=== PATIENT | male | born 2000 | race Caucasian/White ===

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

== ENCOUNTER 2021-03-17 16:22 | Emergency (ER) | payer MEDICAID ==
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
[2021-03-17] MEDS ORDERED: Bacitracin Oint 1 GM U/D Packet TOP ONE (16:53)
[2021-03-17] MEDS ORDERED: Diphtheria,Pertussis(Acell),Tetanus Vaccine 0.5 ML Syringe IM ONE (16:53)
== END 2021-03-17 17:37 | disposition home or self-care (01) ==
LOC: MW.ED 16:22
DX: S91.131A Puncture wound without foreign body of right great toe without damage to nail, initial encounter (principal); Z23 Encounter for immunization; W45.0XXA Nail entering through skin, initial encounter
CPT/HCPCS: 90471; 90715; 99283

== ENCOUNTER 2021-03-25 21:59 | Emergency (ER) | payer MEDICAID ==
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
--- NOTE | 2021-03-25 23:09 | CR ---
Indication: Cough and shortness of breath Technique: Chest 1 view Comparison: None Findings/Impression: Cardiovascular and mediastinum: Heart size and vasculature are normal in caliber and appearance. Lungs and pleural space: Lungs are clear. No sign of infiltrate or mass. No sign of pleural effusion. No pneumothorax. Bones and soft tissues: No acute findings. Dictated by Slick Kern MD @ 03/25/2021 11:08:01 PM (Electronically Signed)
== END 2021-03-25 23:19 | disposition home or self-care (01) ==
LOC: MW.ED 21:59
DX: J40 Bronchitis, not specified as acute or chronic (principal)
CPT/HCPCS: 71045; 71045-26; 99283-25

== ENCOUNTER 2021-08-09 08:33 | Emergency (ER) | payer MEDICAID ==
[2021-08-09] MEDS ORDERED: Ondansetron 4 MG Tab.DIS PO ONE (09:18)
[2021-08-09] MEDS ORDERED: Ketorolac 30 MG/ML SDV IM ONE (09:48)
== END 2021-08-09 10:31 | disposition home or self-care (01) ==
LOC: MW.ED 08:33
DX: S06.0X9A Concussion with loss of consciousness of unspecified duration, initial encounter (principal); W00.0XXA Fall on same level due to ice and snow, initial encounter
CPT/HCPCS: 70450; 96372; 99284; A9270; J1885

== ENCOUNTER 2022-06-19 10:37 | Emergency (ER) | payer MEDICAID ==
[2022-06-19] MEDS ORDERED: Ondansetron 4 MG Tab.DIS PO ONE (11:27)
[2022-06-19 12:34] LABS: CORONAVIRUS COVID-19 NAA NEGATIVE (NEGATIVE); INFLUENZA A NAA POSITIVE (NEGATIVE); INFLUENZA B NAA NEGATIVE (NEGATIVE)
== END 2022-06-19 13:03 | disposition home or self-care (01) ==
LOC: MW.ED 10:37
DX: J10.1 Influenza due to other identified influenza virus with other respiratory manifestations (principal); J45.909 Unspecified asthma, uncomplicated; M19.90 Unspecified osteoarthritis, unspecified site; Z91.048 Other nonmedicinal substance allergy status; Z79.899 Other long term (current) drug therapy; Z20.822 Contact with and (suspected) exposure to COVID-19
CPT/HCPCS: 0240U; 87651; 99283; A9270

== ENCOUNTER 2023-05-23 15:24 | Emergency (ER) | payer MEDICAID ==
[2023-05-23] MEDS ORDERED: Albuterol/Ipratropium 3.0-0.5 MG/3 ML Neb Soln NEB STA (15:33)
[2023-05-23 16:24] LABS: CORONAVIRUS COVID-19 NAA NEGATIVE (NEGATIVE); INFLUENZA A NAA NEGATIVE (NEGATIVE); INFLUENZA B NAA NEGATIVE (NEGATIVE)
[2023-05-23] MEDS ORDERED: Dexamethasone 10 MG/ML SDV PO STA (16:32)
== END 2023-05-23 16:49 | disposition home or self-care (01) ==
LOC: MW.ED 15:24
DX: J45.901 Unspecified asthma with (acute) exacerbation (principal); Z20.822 Contact with and (suspected) exposure to COVID-19; Z79.899 Other long term (current) drug therapy; Z91.048 Other nonmedicinal substance allergy status
CPT/HCPCS: 0240U; 94640; 99285; J8540; J7620-GY

== ENCOUNTER 2023-06-20 15:14 | Emergency (ER) | payer MEDICAID ==
[2023-06-20] MEDS ORDERED: Albuterol/Ipratropium 3.0-0.5 MG/3 ML Neb Soln NEB ONE (15:27)
== END 2023-06-20 16:07 | disposition home or self-care (01) ==
LOC: MW.ED 15:14
DX: J45.901 Unspecified asthma with (acute) exacerbation (principal); Z76.0 Encounter for issue of repeat prescription; Z79.899 Other long term (current) drug therapy; Z91.048 Other nonmedicinal substance allergy status; Z79.2 Long term (current) use of antibiotics
CPT/HCPCS: 99283; 99284; J7620-GY

== ENCOUNTER 2023-08-27 20:02 | Emergency (ER) | payer MEDICAID ==
[2023-08-27] MEDS: Albuterol/Ipratropium 3.0-0.5 MG/3 ML Neb Soln NEB ONE (20:17)
[2023-08-27] MEDS: Ondansetron 4 MG/2 ML SDV IVPUSH ONE (20:17)
[2023-08-27] MEDS: Famotidine 20 MG/2 ML SDV IVPUSH ONE (20:18)
[2023-08-27] MEDS: Sodium Chloride 0.9% 10 ML Syringe FLUSH PRN (20:18)
[2023-08-27] MEDS: Sodium Chloride 0.9% 2.5 ML Syringe FLUSH PRN (20:18)
== END 2023-08-27 21:12 | disposition left against medical advice (07) ==
LOC: MW.ED 20:02
DX: R06.02 Shortness of breath (principal); R07.9 Chest pain, unspecified; J45.909 Unspecified asthma, uncomplicated; E78.00 Pure hypercholesterolemia, unspecified; Z79.899 Other long term (current) drug therapy; Z91.048 Other nonmedicinal substance allergy status
CPT/HCPCS: 93010; 99284; 99285; J2405; J3490; J7620-GY